=== PATIENT | male | born 1980 | race Caucasian/White ===

== ENCOUNTER 2019-12-13 12:15 | Emergency (ER) | payer BC, SELFPAY ==
--- NOTE | ~2019-12-13 | XR_ITS ---
EXAMINATION: XR chest 2V 12/13/2019 12:40 INDICATION: Cough, chest tightness and shortness of breath PROCEDURE: 2 view chest COMPARISON: 11/14/2014 FINDINGS: The lungs are clear. The cardiomediastinal silhouette is within normal limits. There are no pleural effusions. There is no pneumothorax suspected. IMPRESSION: 1: NO ACUTE CARDIOPULMONARY DISEASE. Reviewed, dictated and finalized at location A. D CHECKER
[2019-12-13 12:25] VITALS: BP 115/65; PULSE 65; RESP 20; TEMP 36.8; O2SAT 97
--- NOTE | 2019-12-13 12:38 | ED.URI ---
HPI - URI/Sore Throat General Chief Complaint: Upper Respiratory Infection Stated Complaint: cough/sob Time Seen by Provider: 12/13/19 12:30 Source: patient Mode of arrival: ambulatory Limitations: no limitations History of Present Illness HPI Narrative: Pieter Pichardo is a 39 yo male with a PMH of asthma, HSV, depression, who comes to express care with tightness in chest after using his albuterol rescue inhaler. He is recovering from influenza B. States that he has been unable to clear his lungs Related Data Home Medications Medication Instructions Recorded Confirmed albuterol sulfate 2 puff INHALATION QID PRN 12/13/19 12/13/19 montelukast [Singulair] 10 mg PO DAILY 12/13/19 12/13/19 valacyclovir [Valtrex] 500 mg PO EVERY OTHER DAY 12/13/19 12/13/19 vilazodone [Viibryd] 40 mg PO DAILY 12/13/19 12/13/19 Allergies Allergy/AdvReac Type Severity Reaction Status Date / Time GENTAMICIN SULFATE Allergy Unknown Unknown Uncoded 12/13/19 12:33 Review of Systems Review of Systems: Narrative: CONSTITUTIONAL: Denies fever, chills, sweats. EYES: Denies visual changes, redness, discharge. ENT: Denies rhinorrhea, congestion, sore throat, otalgia. CARDIOVASCULAR: Denies chest pain, palpitations, edema. RESPIRATORY: Denies dyspnea, has wheezing, has cough, he feels tight GASTROINTESTINAL: Denies abdominal pain, nausea, vomiting, diarrhea. GENITOURINARY: Denies dysuria, hematuria, abnormal discharge SKIN: Denies rash or itching. NEUROLOGIC: Denies numbness, or focal weakness. PSYCHIATRIC: Denies anxiety or depression. PMFSH Family History Family History Other No active medical problems Social History Social History (Updated 12/13/19 @ 12:41 by Yelitza Aviles CNP) Smoking status: Never smoker Living arrangements: with family Comments At time of signature, I agree with nursing past medical, surgical, social and family history. There is no relevant family history pertinent to the presenting complaint. Exam Narrative: Exam Narrative: GENERAL: This is a well-nourished, well-developed patient, in mild distress. HEAD: normocephalic, atraumatic. EYES: Sclera clear/white. Vision is grossly intact. EARS: External ears normal, Hearing grossly intact. NOSE: External nose normal with no obvious nasal discharge, nares without redness, no rhinorrhea. THROAT: Mucous membranes moist, posterior pharynx clear. NECK: Neck supple, non-tender CARDIOVASCULAR: Regular rate and rhythm without murmurs, gallops, or rubs. RESPIRATORY: Diminished on right base to auscultation. Breath sounds equal bilaterally. Mild wheezes, no rales, or rhonchi. GASTROINTESTINAL: Abdomen soft, non-tender, SKIN: warm, intact with no suspicious lesions or rash, good texture and turgor. NEURO: awake, alert, and oriented to person, place and time. There were no obvious focal neurologic abnormalities. Steady gait EXTREMITIES: Normal range of motion. No edema. BACK: Nontender without deformity or crepitance. Course Course Emergency Course: Chest x-ray Vital Signs Vital signs: Vital Signs Temperature 98.3 F 12/13/19 12:25 Pulse Rate 65 12/13/19 12:25 Respiratory Rate 20 12/13/19 12:25 Blood Pressure 115/65 12/13/19 12:25 Pulse Oximetry 97 12/13/19 12:25 Temperature 98.3 F 12/13/19 12:25 Pulse Rate 63 12/13/19 13:41 Respiratory Rate 20 12/13/19 13:41 Blood Pressure 115/75 12/13/19 13:41 Pulse Oximetry 99 12/13/19 13:41 MDM - URI/Sore Throat Differential Diagnosis Differential diagnosis: Likely upper respiratory infection, sinusitis, bronchitis and other Discharge Plan Discharge Clinical Impression: Asthma Qualifiers: Asthma severity: mild Asthma persistence: persistent Asthma complication type: uncomplicated Qualified Code(s): J45.30 - Mild persistent asthma, uncomplicated Upper respiratory infection Qualifiers: URI type: unspecified URI Q
[2019-12-13] MEDS: predniSONE 20 MG TABLET 60 MG PO (13:03)
[2019-12-13] MEDS: IPRATROPIUM BR 0.02% INH SOLN 0.5 MG/2.5 ML VIAL INHALATION (13:04)
[2019-12-13] MEDS: ALBUTEROL SULFATE NEB 2.5 MG/3 ML INH INHALATION (13:05)
[2019-12-13 13:41] VITALS: BP 115/75; PULSE 63; RESP 20; O2SAT 99
== END 2019-12-13 13:41 | disposition home or self-care (01) ==
PROVIDERS: Emergency Provider Nurse Practitioner; PCP Physician Assistant
DX: J45.30 Mild persistent asthma, uncomplicated (principal); J06.9 Acute upper respiratory infection, unspecified; F32.9 Major depressive disorder, single episode, unspecified
CPT/HCPCS: 71046; 94640; 99213; G0463; J7512

== ENCOUNTER 2022-10-20 18:22 | Emergency (ER) | payer BC, SELFPAY ==
[2022-10-20 18:24] VITALS: BP 158/90; PULSE 65; RESP 18; TEMP 36.4; O2SAT 98
[2022-10-20 19:32] VITALS: BP 132/83; PULSE 60; RESP 18; TEMP 36.8; O2SAT 97
--- NOTE | 2022-10-20 19:45 | ED.WOUNDLAC ---
HPI - Wound/Laceration General Chief Complaint: Wound/Laceration Stated Complaint: finger laceration Time Seen by Provider: 10/20/22 18:49 Source: patient Mode of arrival: ambulatory Limitations: no limitations History of Present Illness HPI narrative: This is a 41-year-old male that presents to the emergency department for left fifth finger laceration sustained just prior to arrival. Reports he was cutting onions and the knife slipped and he accidentally cut his finger. Reports bleeding and pain to the area. He is not up-to-date on tetanus. Denies decreased range of motion or numbness. Related Data Home Medications Medication Instructions Recorded Confirmed albuterol sulfate 90 mcg/actuation 2 puff inhalation QID PRN Wheezing 12/13/19 12/13/19 aerosol inhaler montelukast 10 mg tablet 10 mg PO DAILY 12/13/19 12/13/19 (Singulair) valacyclovir 500 mg tablet 500 mg PO EVERY OTHER DAY 12/13/19 12/13/19 (Valtrex) vilazodone 40 mg tablet (Viibryd) 40 mg PO DAILY 12/13/19 12/13/19 Allergies Allergy/AdvReac Type Severity Reaction Status Date / Time GENTAMICIN SULFATE Allergy Unknown Unknown Uncoded 10/20/22 18:27 Review of Systems Review of Systems: CONSTITUTIONAL: Denies fever SKIN: Reports laceration MUSCULOSKELETAL: Denies joint pain, or myalgia. NEUROLOGIC: Denies numbness All systems reviewed & are unremarkable except as noted in HPI and below PMFSH Past Medical History Medical History (Updated 10/20/22 @ 20:45 by Radha Jasmine PA-C) History of asthma Family History Family History Other No active medical problems Social History Social History (Updated 12/13/19 @ 12:41 by Yelitza Aviles, [employer] SHANK COVERER) Smoking status: Never smoker Exam Narrative: GENERAL: Well-appearing, well-nourished, and in no acute distress. HEAD: Normocephalic, atraumatic. EYES: EOMI. EXTREMITIES: Normal range of motion. No edema or obvious deformity. Left fifth finger 1cm linear laceration into subcutaneous tissue to the tip, involvement of a small portion of the distal nail SKIN: Warm, dry, no rash. NEURO: No focal deficits. Alert and oriented x3. PSYCH: Normal mood and affect Course Vital Signs Vital signs: Vital Signs Temperature 97.6 F 10/20/22 18:24 Pulse Rate 65 10/20/22 18:24 Respiratory Rate 18 10/20/22 18:24 Blood Pressure 158/90 H 10/20/22 18:24 Pulse Oximetry 98 10/20/22 18:24 Oxygen Delivery Room Air 10/20/22 18:24 Temperature 98.2 F 10/20/22 19:32 Pulse Rate 60 10/20/22 19:32 Respiratory Rate 18 10/20/22 19:32 Blood Pressure 132/83 10/20/22 19:32 Pulse Oximetry 97 10/20/22 19:32 Oxygen Delivery Room Air 10/20/22 18:24 Procedures Laceration Laceration 1: Date: 10/20/22 Time: 20:43 Site: hand Side (If applicable): left Size (cm): 1 Description: linear Depth: simple, single layer Local Anesthetic: lidocaine 1% Amount of anesthesia used (mL): 2 Pre-repair: irrigated ====== Skin Level ====== Skin layer closed with: nylon Size (cm): 4-0 Number of sutures: 2 Technique: simple, interrupted ====== Subcutaneous Layer ====== ====== Muscle Layer ====== ====== Tendon Layer ====== MDM - Wound/Laceration MDM Narrative Medical decision making narrative: Patient presents emergency department for a laceration to the left fifth finger sustained just prior to arrival. Patient is neurovascularly intact. His wound was irrigated and closed with sutures. He was updated on tetanus. He was educated on wound care. He is to follow-up with primary care provider. He was given warnings to return to the ER Critical Care Time Critical Care Time Critical Care Time: No Discharge Plan Discharge Clinical Impression: Laceration Patient Disposition: Home, Self-Care Condition: Stable In
[2022-10-20] MEDS: LIDOCAINE HCL 1% PF 30 ML VIAL 20 ML INFILTRATE (20:22)
[2022-10-20] MEDS: TETANUS,DIPHTHERIA,AC PERTUSSIS ADULT (0.5 ML) BOOSTRIX IM (20:25)
== END 2022-10-20 20:53 | disposition home or self-care (01) ==
PROVIDERS: Emergency Provider Physician Assistant; PCP Physician Assistant
DX: S61.217A Laceration without foreign body of left little finger without damage to nail, initial encounter (principal); Z23 Encounter for immunization; J45.909 Unspecified asthma, uncomplicated; W26.0XXA Contact with knife, initial encounter; Y93.G1 Activity, food preparation and clean up
CPT/HCPCS: 12001; 90471; 90715; 99282